=== PATIENT | female | born 1955 | race Caucasian/White ===

== ENCOUNTER 2020-12-19 06:49 | Outpatient (CLI) | payer OTHER ==
[2020-12-19 07:22] LABS: Hemoglobin 14.3 g/dL (12.0-16.0); Mean Corpuscular Hemoglobin 29.4 pg (27.0-31.0); Mean Corpuscular Volume 91.8 fL (78.0-98.0); Platelet Count 437 thou/uL (130-400); RBC Distribution Width 12.1 % (11.5-14.5); Red Blood Cell (RBC) Count 4.88 mill/uL (4.20-5.40); White Blood Cell (WBC) Count 7.9 thou/uL (4.8-10.8)
[2020-12-19 07:40] LABS: ALT (SGPT) 11 U/L (8-55); AST (SGOT) 13 U/L (5-34); Albumin 3.8 g/dL (3.4-4.8); Alkaline Phosphatase 99 U/L (40-110); Anion Gap 18 mmol/L (10-20); BUN (Urea Nitrogen) 11 mg/dL (9.8-20.1); Bilirubin, Total 0.4 mg/dL (0.2-1.2); Calc. Creatinine Clearance 0 mL/min (70-130); Calcium 9.7 mg/dL (7.8-10.44); Carbon Dioxide 28 mmol/L (23-31); Cardiac Risk 3.4 (Less than 4.5); Chloride 102 mmol/L (98-107); Cholesterol 218 mg/dl (< 200 Desired); Globulin 3.2 g/dL (2.4-3.5); Glucose 98 mg/dL (80-115); HDL Cholesterol 65 mg/dL (>60 Neg Risk); LDL Cholesterol, Calculated 99 mg/dL; Potassium 3.7 mmol/L (3.5-5.1); Sodium 144 mmol/L (136-145); Triglycerides 269 mg/dL (Less than 150); Uric Acid 4.3 mg/dL (2.6-6.0)
[2020-12-19 12:36] LABS: T4 13.2 ug/dL (4.87-11.72)
[2020-12-19 12:38] LABS: Follicle Stimulating Hormone 8.42 mIU/mL (See Ranges); Vitamin D, 25 Hydroxy 19.5 ng/ml (> 30.0)
== END 2020-12-19 06:50 | disposition home or self-care (01) ==
LOC: MADERS 06:49 → MADLAB 06:50
PROVIDERS: ATTEND Obstetrics & Gynecology
DX: Z01.419 Encounter for gynecological examination (general) (routine) without abnormal findings (principal); R53.83 Other fatigue; N95.1 Menopausal and female climacteric states; E55.9 Vitamin D deficiency, unspecified; Z79.810 Long term (current) use of selective estrogen receptor modulators (SERMs)
CPT/HCPCS: 36415; 80053; 80061; 82306; 82670; 83001; 84436; 84443; 84479; 84550; 85027

== ENCOUNTER 2022-01-20 06:52 | Outpatient (CLI) | payer OTHER ==
[2022-01-20 07:19] LABS: #Basophils 0.1 thou/uL (0.0-0.2); #Eosinphils 0.2 thou/uL (0.0-0.7); #Lymphocytes 2.8 thou/uL (1.20-3.40); #Monocytes 0.5 thou/uL (0.11-0.59); #Neutrophils 3.6 thou/uL (1.40-6.50); %Basophils 1.6 % (0.0-1.0); %Eosinophils 3.3 % (0.0-10.0); %Lymphocytes 39.1 % (21.0-51.0); %Monocytes 6.5 % (0.0-10.0); %Neutrophils 49.5 % (42.0-75.0); Hemoglobin 14.6 g/dL (12.0-16.0); Mean Corpuscular HGB CONC 33.1 g/dL (32.0-36.0); Mean Corpuscular Hemoglobin 29.1 pg (27.0-31.0); Platelet Count 404 thou/uL (130-400); RBC Distribution Width 11.3 % (11.5-14.5); Red Blood Cell (RBC) Count 5.02 mill/uL (4.20-5.40); White Blood Cell (WBC) Count 7.2 thou/uL (4.8-10.8)
[2022-01-20 07:39] LABS: ALT (SGPT) 14 U/L (8-55); AST (SGOT) 13 U/L (5-34); Alkaline Phosphatase 109 U/L (40-110); Anion Gap 17 mmol/L (10-20); BUN (Urea Nitrogen) 11 mg/dL (9.8-20.1); Bilirubin, Direct 0.2 mg/dL (0.1-0.3); Bilirubin, Total 0.5 mg/dL (0.2-1.2); Calc. Creatinine Clearance 0 mL/min (70-130); Calcium 9.9 mg/dL (7.8-10.44); Carbon Dioxide 25 mmol/L (23-31); Cardiac Risk 3.6 (Less than 4.5); Chloride 101 mmol/L (98-107); Cholesterol 241 mg/dl (< 200 Desired); Estimated GFR 86; Glucose 104 mg/dL (80-115); HDL Cholesterol 67 mg/dL (>60 Neg Risk); LDL Cholesterol, Calculated 134 mg/dL; Magnesium 1.9 mg/dL (1.6-2.6); Phosphorus 2.7 mg/dL (2.3-4.7); Potassium 3.6 mmol/L (3.5-5.1); Protein, Total 7.5 g/dL (5.8-8.1); Sodium 139 mmol/L (136-145); Triglycerides 202 mg/dL (Less than 150)
[2022-01-20 07:59] LABS: Thyroid Stimulating Hormone 1.6223 uIU/mL (0.35-4.94)
[2022-01-20 12:38] LABS: Albumin (w/Testosterone Panel) 4.1 g/dL
[2022-01-20 13:04] LABS: Sex Hormone Binding Globulin 207.5 nmol/L (26-188); Testosterone, Total 21.9 ng/dL (12-36); Vitamin D, 25 Hydroxy 37.1 ng/ml (> 30.0)
[2022-01-23 04:27] LABS: Follow-up Chemistry Comp? YES; Follow-up Result - Chemistry REPORT FAXED
== END 2022-01-20 06:53 | disposition home or self-care (01) ==
LOC: MADLAB 06:52
PROVIDERS: ATTEND Obstetrics & Gynecology
DX: N95.2 Postmenopausal atrophic vaginitis (principal); N95.1 Menopausal and female climacteric states; E78.2 Mixed hyperlipidemia; R53.83 Other fatigue; E55.9 Vitamin D deficiency, unspecified; Z79.899 Other long term (current) drug therapy
CPT/HCPCS: 80051; 80061; 80076; 82306; 82310; 82565; 82670; 82947; 83001; 83735; 84100; 84270; 84403; 84443; 84520; 85025

== ENCOUNTER 2022-03-22 20:36 | Emergency (ER) | payer OTHER ==
[2022-03-22] MEDS ORDERED: predniSONE 10 MG TAB ONE (21:08)
[2022-03-22] MEDS ORDERED: predniSONE 20 MG TAB ONE (21:08)
== END 2022-03-22 22:19 | disposition home or self-care (01) ==
LOC: MADERS 20:36
DX: J98.01 Acute bronchospasm (principal); E78.5 Hyperlipidemia, unspecified; I10 Essential (primary) hypertension; Z79.899 Other long term (current) drug therapy
CPT/HCPCS: 71045; 87804; J7512; J7620